=== PATIENT | male | born 1960 | race Caucasian/White ===

== ENCOUNTER 2020-01-07 22:34 | Emergency (ER) | payer MEDICAID ==
[~2020-01-07] VITALS: Ht 180.3 cm; Wt 68.0 kg
[2020-01-07 23:15] LABS: CALCIUM 8.9 mg/dL (8.5-10.1); POTASSIUM 4.4 mmol/L (3.5-5.1)
[2020-01-07 23:19] LABS: ALBUMIN 4.6 g/dL (3.4-5.0); TOTAL BILIRUBIN 1.2 mg/dL (<0.1-1.0); TOTAL PROTEIN 9.5 g/dL (6.4-8.2)
[2020-01-07 23:44] LABS: URINE BILIRUBIN NEGATIVE (Negative); URINE BLOOD NEGATIVE (Negative); URINE CLARITY CLEAR; URINE COLOR YELLOW; URINE GLUCOSE-RANDOM NEGATIVE (Negative); URINE KETONES TRACE (Negative); URINE LEUKOCYTES-REFLEX NEGATIVE (Negative); URINE NITRITE-REFLEX NEGATIVE (Negative); URINE PROTEIN TRACE (Negative); URINE SPECIFIC GRAVITY 1.025 (1.005-1.030)
[2020-01-07 23:50] LABS: AMP/METHAMP POSITIVE (Negative); BARBITURATES Negative (Negative); BENZODIAZEPINES POSITIVE (Negative); COCAINE Negative (Negative); METHADONE Negative (Negative); OPIATES Negative (Negative); PCP Negative (Negative); THC POSITIVE (Negative)
[2020-01-08 00:09] VITALS: BP 165/97
== END 2020-01-08 00:10 | disposition home or self-care (01) ==
LOC: M.ERS 22:34
PROVIDERS: Personal Emergency Response Attendant
DX: S76.011A Strain of muscle, fascia and tendon of right hip, initial encounter (principal); F19.10 Other psychoactive substance abuse, uncomplicated; B17.9 Acute viral hepatitis, unspecified; K76.89 Other specified diseases of liver; J44.9 Chronic obstructive pulmonary disease, unspecified; M41.9 Scoliosis, unspecified; Z86.19 Personal history of other infectious and parasitic diseases; W18.39XA Other fall on same level, initial encounter; Y93.89 Activity, other specified; Y92.89 Other specified places as the place of occurrence of the external cause; Y99.8 Other external cause status